=== PATIENT | male | born 1975 | race Caucasian/White ===

== ENCOUNTER 2017-01-06 12:48 | Emergency (ER) | payer SELFPAY ==
[~2017-01-06] VITALS: Ht 170.2 cm; Wt 90.0 kg
[~2017-01-06 12:48] MED LIST: AMOXICILLIN500 MG PO; BLOOD PRESSURE PILL; CIPROFLOXACN500 MG PO; HYDROCHLOROT12.5 MG OR; LISINOPRIL10 MG OR; METRONIDAZOL500 MG PO; NAPROSYN375 MG PO; NAPROXEN SOD550 MG OR; NO HOME MEDS; PERCOCET 5/325M1 TAB PO; PRILOSEC20 MG OR; TAM75CAP PO; ULTRAM50 M1 PO
[2017-01-06 13:21] LABS: HEMATOCRIT 46.1 % (39.0-50.0); HEMOGLOBIN 16.1 g/dl (14.0-18.0); IMMATURE GRANULOCYTES 0.3 % (0.0-1.0); MEAN CELL VOLUME 85.4 fL CALC (80.0-100.0); MEAN CORPUSCULAR HGB 29.8 pG CALC (26.0-32.0); MEAN CORPUSCULAR HGB CONC 34.9 g/L CALC (32.0-36.0); NEUT# 4.38 thou/uL (1.82-7.42); RED BLOOD COUNT 5.4 mill/uL (4.70-6.10); RED CELL DISTRI WIDTH 12.6 % (11.5-15.5)
[2017-01-06 13:32] LABS: ALBUMIN 4.2 g/dL (3.2-5.0); ALKALINE PHOSPHATASE 84 u/l (38-126); AMYLASE 52 u/l (30-110); ANION GAP 15 (6-22 (CALC)); BILIRUBIN, TOTAL 0.5 mg/dL (0.0-1.4); BUN 15 mg/dL (9-20); BUN/CREATININE RATIO 13 (12-20 (CALC)); CALCIUM 8.8 mg/dL (8.4-10.2); CARBON DIOXIDE 26 mmol/l (22-30); CHLORIDE 105 mmol/l (95-108); CREATININE 1.1 mg/dL (0.7-1.3); GFR > 60 ML/MIN (>=60 (CALC)); GFR FOR AFR.AMER. > 60 ML/MIN (>=60 (CALC)); GLUCOSE 139 mg/dL (75-110); LIPASE 96 u/l (23-300); POTASSIUM 4.1 mmol/l (3.5-5.1); SGOT/AST 26 u/l (17-59); SGPT/ALT 49 u/l (21-72); SODIUM 142 mmol/l (137-146); TOTAL PROTEIN 7.2 g/dL (6.3-8.2)
[2017-01-06] MEDS ORDERED: AMLODIPINE5 MG PO ×2 (15:31→15:54)
[2017-01-06] MEDS ORDERED: IBUPROFEN200 MG PO (15:32)
[2017-01-06] MEDS ORDERED: LOPRESSOR50 M1 PO (15:43)
[2017-01-06 16:10] VITALS: BP 175/90
== END 2017-01-06 16:12 | disposition left against medical advice (07) | DRG 313 ==
LOC: ED 12:48
PROVIDERS: Emergency Medicine
DX: R07.9 Chest pain, unspecified (principal); I24.9 Acute ischemic heart disease, unspecified; I10 Essential (primary) hypertension; Z91.19 Patient's noncompliance with other medical treatment and regimen

== ENCOUNTER 2017-02-01 08:03 | Emergency (ER) | payer SELFPAY ==
[~2017-02-01] VITALS: Ht 170.2 cm; Wt 84.1 kg
[~2017-02-01 08:03] MED LIST changes: +AMLODIPINE5 MG PO; +IBUPROFEN200 MG PO; +LOPRESSOR50 M1 PO
[2017-02-01] MEDS ORDERED: EC-NAPROSYN500 MG PO (09:42)
[2017-02-01 09:53] VITALS: BP 139/89
== END 2017-02-01 09:53 | disposition home or self-care (01) | DRG 563 ==
LOC: ED 08:03
DX: S86.911A Strain of unspecified muscle(s) and tendon(s) at lower leg level, right leg, initial encounter (principal); M25.561 Pain in right knee; S80.01XA Contusion of right knee, initial encounter; W21.07XA Struck by softball, initial encounter; Y93.64 Activity, baseball; Y92.328 Other athletic field as the place of occurrence of the external cause

== ENCOUNTER 2017-06-06 08:31 | Emergency (ER) | payer SELFPAY ==
[~2017-06-06] VITALS: Ht 170.2 cm; Wt 84.0 kg
[~2017-06-06 08:31] MED LIST changes: +EC-NAPROSYN500 MG PO
[2017-06-06] MEDS ORDERED: MOTRIN800 MG PO (08:53)
[2017-06-06 08:59] VITALS: BP 140/90
== END 2017-06-06 09:06 | disposition home or self-care (01) | DRG 556 ==
LOC: ED 08:31
DX: M25.521 Pain in right elbow (principal); I10 Essential (primary) hypertension; F31.9 Bipolar disorder, unspecified

== ENCOUNTER 2018-06-04 14:10 | Emergency (ER) | payer OTHER ==
[~2018-06-04] VITALS: Ht 170.2 cm; Wt 81.0 kg
[~2018-06-04 14:10] MED LIST changes: +MOTRIN800 MG PO
[2018-06-04] MEDS ORDERED: TORADOL PO (16:22)
[2018-06-04 16:25] VITALS: BP 149/74
== END 2018-06-04 16:25 | disposition home or self-care (01) | DRG 605 ==
LOC: ED 14:10
DX: S60.221A Contusion of right hand, initial encounter (principal); I10 Essential (primary) hypertension; W23.0XXA Caught, crushed, jammed, or pinched between moving objects, initial encounter; Y93.89 Activity, other specified; Y92.79 Other farm location as the place of occurrence of the external cause; Y99.0 Civilian activity done for income or pay

== ENCOUNTER 2018-07-10 21:58 | Emergency (ER) | payer SELFPAY ==
[~2018-07-10] VITALS: Ht 170.2 cm; Wt 87.2 kg
[~2018-07-10 21:58] MED LIST changes: +TORADOL PO
[2018-07-10] MEDS ORDERED: ZANTAC 150 MAX150 MG PO (22:06)
[2018-07-10 22:58] LABS: HEMATOCRIT 45.1 % (39.0-50.0); HEMOGLOBIN 15.6 g/dl (14.0-18.0); IMMATURE GRANULOCYTES 0.3 % (0.0-5.0); MEAN CELL VOLUME 87.1 fL CALC (80.0-100.0); MEAN CORPUSCULAR HGB 30.1 pG CALC (26.0-32.0); MEAN CORPUSCULAR HGB CONC 34.6 g/L CALC (32.0-36.0); NEUT# 3.46 thou/uL (1.82-7.42); RED BLOOD COUNT 5.18 mill/uL (4.70-6.10); RED CELL DISTRI WIDTH 12.9 % (11.5-15.5)
[2018-07-10 23:14] LABS: ALBUMIN 4.1 g/dL (3.2-5.0); ALKALINE PHOSPHATASE 62 u/l (38-126); ANION GAP 14 (6-22 (CALC)); BILIRUBIN, TOTAL 0.2 mg/dL (0.0-1.4); BUN 14 mg/dL (9-20); BUN/CREATININE RATIO 13 (12-20 (CALC)); CARBON DIOXIDE 23 mmol/l (22-30); CHLORIDE 109 mmol/l (95-108); CREATININE 1.1 mg/dL (0.7-1.3); GFR > 60 ML/MIN (>=60 (CALC)); GFR FOR AFR.AMER. > 60 ML/MIN (>=60 (CALC)); POTASSIUM 3.6 mmol/l (3.5-5.1); SGOT/AST 38 u/l (17-59); SGPT/ALT 60 u/l (21-72); SODIUM 142 mmol/l (137-146); TOTAL PROTEIN 7.3 g/dL (6.3-8.2)
[2018-07-10 23:26] LABS: MYOGLOBIN 30 ng/mL (0 - 121)
[2018-07-11] MEDS ORDERED: ZOFRAN ODT4 MG PO (00:03)
[2018-07-11] MEDS ORDERED: ANTIVERT PO (00:03)
[2018-07-11 00:25] VITALS: BP 153/95
== END 2018-07-11 00:25 | disposition home or self-care (01) | DRG 149 ==
LOC: ED 21:58
PROVIDERS: Emergency Medicine
DX: R42 Dizziness and giddiness (principal); I10 Essential (primary) hypertension

== ENCOUNTER → 2019-01-09 | Outpatient (REF) ==
[~2019-01-09] MED LIST changes: +ANTIVERT PO; +ZANTAC 150 MAX150 MG PO; +ZOFRAN ODT4 MG PO
== END | disposition home or self-care (01) | DRG 951 ==
LOC: LAB 11:20
DX: Z02.1 Encounter for pre-employment examination (principal)

== ENCOUNTER 2019-10-08 12:37 | Emergency (ER) | payer BC ==
[~2019-10-08] VITALS: Ht 170.2 cm; Wt 84.0 kg
[2019-10-08] MEDS ORDERED: NORVASC5 M1 PO (17:16)
[2019-10-08] MEDS ORDERED: VOLTAREN1%GEL TOP (17:16)
[2019-10-08 17:35] VITALS: BP 180/105
== END 2019-10-08 17:44 | disposition home or self-care (01) | DRG 556 ==
LOC: ED 12:37
DX: M25.562 Pain in left knee (principal); M17.12 Unilateral primary osteoarthritis, left knee; I10 Essential (primary) hypertension
CPT/HCPCS: L1830

== ENCOUNTER 2019-12-09 | Emergency (ER) | payer BC ==
[~2019-12-09] MED LIST changes: +NORVASC5 M1 PO; +VOLTAREN1%GEL TOP
== END 2019-12-09 16:35 | disposition home or self-care (01) | DRG 605 ==
DX: S00.31XA Abrasion of nose, initial encounter (principal); I10 Essential (primary) hypertension; W21.07XA Struck by softball, initial encounter; Y93.64 Activity, baseball; Y92.320 Baseball field as the place of occurrence of the external cause

== ENCOUNTER 2022-08-22 11:21 | Emergency (ER) | payer SELFPAY ==
[~2022-08-22] VITALS: Ht 170.2 cm; Wt 86.4 kg
[2022-08-22 11:36] VITALS: BP 164/109
[2022-08-22 11:45] VITALS: BP 166/109
[2022-08-22] MEDS ORDERED: KEFLEX500 MG PO (12:15)
[2022-08-22 12:41] VITALS: BP 166/109
== END 2022-08-22 12:46 | disposition home or self-care (01) | DRG 605 ==
LOC: ED 11:21
DX: S61.411A Laceration without foreign body of right hand, initial encounter (principal); W55.42XA Struck by pig, initial encounter